=== PATIENT | male | born 2000 | race Two or more races ===

== ENCOUNTER 2023-06-14 14:37 | Emergency (ER) | payer BC ==
[~2023-06-14] VITALS: Ht 177.8 cm; Wt 74.8 kg
[2023-06-14] MEDS ORDERED: IV NS 0.9% 250 ML IV ONE (14:48)
[2023-06-14] MEDS ORDERED: IOHEXOL-350 100 ML VIAL IV ONE (14:48)
[2023-06-14 14:58] LABS: BASOPHILS % (AUTO) 0.3 % (0.0-2.0); EOSINOPHILS % (AUTO) 0.4 % (0.0-6.0); HEMATOCRIT 45 % (39-51); LYMPHOCYTES # (AUTO) 1.5 K/uL (0.8-4.8); LYMPHOCYTES % (AUTO) 21.7 % (20.0-44.0); MEAN CORPUSCULAR HEMOGLOBIN 30 PG (26.0-33.0); MEAN CORPUSCULAR HGB CONC 33 g/dl (31.0-36.0); MEAN CORPUSCULAR VOLUME 89 fL (80-96); MONOCYTES # (AUTO) 0.6 K/uL (0.1-1.30); MONOCYTES % (AUTO) 8.4 % (2.0-12.0); NEUTROPHILS # (AUTO) 4.8 K/uL (1.8-8.9); NEUTROPHILS % (AUTO) 69.2 % (43.0-81.0); PLATELET COUNT (AUTO) 239 K/uL (150-450); RED BLOOD CELL COUNT(AUTO) 5.08 MIL/uL (4.5-6.0); WHITE BLOOD COUNT (AUTO) 6.9 K/uL (4.3-11.0)
[2023-06-14] MEDS ORDERED: IV NS 0.9% 500 ML BAG IV ONE (15:00)
[2023-06-14 15:06] LABS: CALCIUM, SERUM 9.4 mg/dL (8.5-10.1); CARBON DIOXIDE 22 mmol/L (21-32); CHLORIDE 105 mmol/L (98-107); GLUCOSE 136 mg/dL (74-106); SODIUM SERUM 140 mmol/L (136-145); UREA NITROGEN, BLOOD 16 mg/dL (7-18)
[2023-06-14 15:12] LABS: ALANINE AMINOTRANSFERASE 32 U/L (12-78); ALBUMIN 4.4 g/dL (3.4-5.0); ALKALINE PHOSPHATASE 90 U/L (46-116); ASPARTATE AMINOTRANSFERASE 14 U/L (15-37); BILIRUBIN,DIRECT 0.1 mg/dL (0.0-0.2); BILIRUBIN,TOTAL 0.4 mg/dL (0.2-1.0); INR 1.17 (0.91-1.10); PARTIAL THROMBOPLASTIN TIME 28.2 SEC (24.3-34.3); PROTHROMBIN TIME 12.3 SECS (9.2-11.1); TOTAL PROTEIN, SERUM 7.9 g/dL (6.4-8.2)
[2023-06-14 17:16] VITALS: BP 132/71; TEMP 98.3; O2SAT 99
== END 2023-06-14 17:16 | disposition home or self-care (01) ==
LOC: ER 14:39
DX: R53.1 Weakness (principal)
CPT/HCPCS: 99285; 70498; 96360; 96361; 93005; 70496; 85025; 80048; 80076; 84484; 85730; 80307; 70450; J7050; J7040; Q9967